=== PATIENT | female | born 1990 | race American Indian/Alaskan Native ===

== ENCOUNTER 2018-10-12 02:00 | Emergency (ER) | payer OTHER ==
--- NOTE | 2018-10-12 03:52 | Emergency Department Report ---
ED Eye Problem HPI - General Chief complaint: Eye Problems Stated complaint: CONTACT LENS STUCK IN L EYE Time Seen by Provider: 10/12/18 02:42 Source: patient Mode of arrival: Ambulatory Limitations: No Limitations - History of Present Illness Initial comments: pt presents for retained contact lense x 1 days stats "its stuck and cant get it out, there is no headache no dizziness no fever or chills no eye discharge. chief complaint: foreign body -: days(s) Location: left eye Place: home If Injury: none Eye Symptoms: burning, redness, foreign body sensation Severity: moderate Severity scale (0 -10): 5 (s) If Pain, Quality: burning Consistency: constant Context: contact lens use Associated Symptoms: none Treatments Prior to Arrival: none - Related Data Patient Tetanus UTD: Yes Previous Rx's Medication Instructions Recorded Last Taken Type Acetaminophen/Codeine [Tylenol 1 tab PO Q6H PRN #15 tab 08/08/13 Unknown Rx /Codeine # 3 tab] Naproxen Sodium (Nf) [Anaprox DS 550 mg PO BID PRN #14 tablet 08/08/13 Unknown Rx TAB] Cetirizine HCl [ZyrTEC] 10 mg PO DAILY #30 capsule 10/12/18 Unknown Rx Ibuprofen 800 mg PO TID PRN #30 tablet 10/12/18 Unknown Rx Polymyxin B Sulf/Trimethoprim 2 drops OP Q4H 10 Days #10 ml 10/12/18 Unknown Rx [Polytrim Eye Drops] Allergies Allergy/AdvReac Type Severity Reaction Status Date / Time No Known Allergies Allergy Unverified 08/07/13 21:46 ED Review of Systems ROS: Stated complaint: CONTACT LENS STUCK IN L EYE Other details as noted in HPI Constitutional: denies: chills, fever Eyes: eye pain, other. denies: eye discharge, vision change ENT: denies: ear pain, throat pain Respiratory: denies: cough, shortness of breath, wheezing Cardiovascular: denies: chest pain, palpitations Endocrine: no symptoms reported Gastrointestinal: denies: abdominal pain, nausea, diarrhea Genitourinary: denies: urgency, dysuria, discharge Musculoskeletal: denies: back pain, joint swelling, arthralgia Skin: denies: rash, lesions Neurological: denies: headache, weakness, paresthesias Psychiatric: denies: anxiety, depression Hematological/Lymphatic: denies: easy bleeding, easy bruising ED Past Medical Hx - Past Medical History Previous Medical History?: No - Surgical History Past Surgical History?: No - Social History Smoking Status: Never Smoker Substance Use Type: None - Medications Home Medications: Home Medications Medication Instructions Recorded Confirmed Last Taken Type Acetaminophen/Codeine [Tylenol 1 tab PO Q6H PRN #15 tab 08/08/13 Unknown Rx /Codeine # 3 tab] Naproxen Sodium (Nf) [Anaprox DS 550 mg PO BID PRN #14 tablet 08/08/13 Unknown Rx TAB] Cetirizine HCl [ZyrTEC] 10 mg PO DAILY #30 capsule 10/12/18 Unknown Rx Ibuprofen 800 mg PO TID PRN #30 tablet 10/12/18 Unknown Rx Polymyxin B Sulf/Trimethoprim 2 drops OP Q4H 10 Days #10 ml 10/12/18 Unknown Rx [Polytrim Eye Drops] ED Physical Exam - General Limitations: No Limitations General appearance: alert, in no apparent distress - Head Head exam: Present: atraumatic, normocephalic, normal inspection - Eye Eye exam: Present: PERRL, EOMI, conjunctival injection. Absent: nystagmus, periorbital swelling, periorbital tenderness Pupils: Present: normal accommodation - Expanded Eye Exam Expanded Eyelids: Normal Inspection: Right Pupils: Regular, Round: Bilateral, Reactive: Bilateral Sclera/Conjunctival: Injection: Left Anterior chamber: Normal Inspection: Left Posterior chamber: Deferred: Bilateral Visual acuity (R) = 20/: 20 Visual acuity (L) = 20/: 30 With correction: Yes IOP measured with: Tonopen - ENT ENT exam: Present: normal exam, mucous membranes moist - Neck Neck exam: Present: normal inspection, full ROM - Respiratory Respiratory exam: Present: normal lung sounds bilaterally. Absent: respiratory distress - Cardiovascular Cardiovascular Exam: Present: regular rate, normal rhythm. Absent: systolic murmur, diastolic murmur, rubs, gallop - GI/Abdominal GI/Abdominal exam: Present: soft, normal bowel sounds - Extremities Exam Extremities exam: Present: normal inspection - Back Exam Back exam: Present: normal inspection, full ROM - Neurological Exam Neurological exam: Present: alert, oriented X3, CN II-XII intact, normal gait - Psychiatric Psychiatric exam: Present: normal affect, normal mood - Skin Skin exam: Present: warm, dry, intact, normal color. Absent: rash ED Course Vital Signs 10/12/18 02:07 Temperature 98.9 F Pulse Rate 84 Respiratory 16 Rate Blood Pressure 107/76 O2 Sat by Pulse 99 Oximetry - Eye Procedure Alcaine Drops Administered: No (tetracaine drops ) Eye FB Removal: other (no foreign body noted on) Eye Irrigated w/ Saline (ccs): 20 Progress: eye exam via tuttle lamp anesthesia with tetracaine eye drop. flouracene tuttle lamp exam no cornea abrasion notexd no foreign body, plan follow up with ophthalmology tomorrow ,given rx for polytrim , ibuprofen, zyrtec. pt tolerated procedure with minimal distress. ED Medical Decision Making - Medical Decision Making no foreign body noted see procedure note, pt will follow up with,ophthalmology tomorrow pt dc'd to home in stable condition at this time. Critical care attestation.: If time is entered above; I have spent that time in minutes in the direct care of this critically ill patient, excluding procedure time. ED Disposition Clinical Impression: Contact lens stuck Foreign body in eye Qualifiers: Encounter type: initial encounter Laterality: left Qualified Code(s): T15.92XA - Foreign body on external eye, part unspecified, left eye, initial encounter Disposition: DC-01 TO HOME OR SELFCARE Is pt being admited?: No Does the pt Need Aspirin: No Condition: Stable Instructions: Eye Foreign Body (ED), Conjunctivitis (ED) Additional Instructions: Operative Eyedeal [facility] [address], [place] [id number] Prescriptions: Ibuprofen 800 mg PO TID PRN #30 tablet PRN Reason: pain Polymyxin B Sulf/Trimethoprim [Polytrim Eye Drops] 2 drops OP Q4H 10 Days #10 ml Cetirizine HCl [ZyrTEC] 10 mg PO DAILY #30 capsule Referrals: JEIMY CHRISTOPHER MD [Staff Physician] - 3-5 Days Forms: Work/School Release Form(ED) Time of Disposition: 03:50
[2018-10-12 04:23] VITALS: BP 103/74
== END 2018-10-12 04:05 | disposition home or self-care (01) ==
LOC: ED 02:00
DX: T15.92XA Foreign body on external eye, part unspecified, left eye, initial encounter (principal); W22.8XXA Striking against or struck by other objects, initial encounter; Y93.89 Activity, other specified; Y92.89 Other specified places as the place of occurrence of the external cause; Y99.8 Other external cause status
CPT/HCPCS: 99283